=== PATIENT | female | born 1990 | race Caucasian/White ===

== ENCOUNTER 2022-05-09 16:20 | Outpatient (CLI) | payer BC, SELFPAY ==
--- NOTE | ~2022-05-09 | US_ITS ---
EXAMINATION: US pelvic complete w TV DATE: 05/09/2022 17:09 INDICATION: Bleeding. TECHNIQUE: Multiple transabdominal and transvaginal sonographic images of the pelvis were obtained. COMPARISON: None. FINDINGS: TRANSABDOMINAL ULTRASOUND: The uterus measures 6.8 x 3.7 x 4.8 cm. There is no free fluid in the pelvis. TRANSVAGINAL ULTRASOUND: The endometrial complex measures 4 mm in thickness. The right ovary measures 3.8 x 1.8 x 2.6 cm. The left ovary measures 3.1 x 2.1 x 2.6 cm. There is normal vascular flow in the ovaries. IMPRESSION: 1. Normal pelvis. Reviewed, dictated and finalized at location A. IMPRESSION: 1. Normal pelvis.
== END 2022-05-09 16:21 | disposition home or self-care (01) ==
LOC: ANHIMG 16:25
PROVIDERS: PCP Family Medicine Sports Medicine; Visit Provider Obstetrics & Gynecology Gynecologic Oncology
DX: N93.0 Postcoital and contact bleeding (principal)
CPT/HCPCS: 76830; 76856